=== PATIENT | male | born 1970 | race Two or more races ===

== ENCOUNTER 2017-11-17 09:42 | Day surgery (SDC) | payer OTHER ==
[2017-11-17] MEDS ORDERED: MIDAZOLAM 1 MG/ML 2 ML INJ ×2 (13:00)
[2017-11-17] MEDS ORDERED: FENTAnyl 50 MCG/ML VIAL (13:00)
== END 2017-11-17 14:18 | disposition home or self-care (01) ==
LOC: GIL 09:42
DX: Z12.11 Encounter for screening for malignant neoplasm of colon (principal); K64.4 Residual hemorrhoidal skin tags; D12.6 Benign neoplasm of colon, unspecified
CPT/HCPCS: 45380; 88305